=== PATIENT | female | born 1970 | race Caucasian/White ===

== ENCOUNTER 2016-08-10 11:55 | Emergency (ER) | payer BC ==
[2016-08-10 12:07] VITALS: BP 100/69
[2016-08-10] MEDS ORDERED: PROMETHAZINE HCL 25 MG in DEXTROSE 5 % IN WATER 50 ML IV ONE ×2 (12:20)
[2016-08-10] MEDS ORDERED: NORMAL SALINE 1,000 ML IV ONE (12:20)
[2016-08-10] MEDS ORDERED: diphenhydrAMINE HCL 50 MG/ML VIAL IV ONE (12:20)
--- OUTSIDE RECORDS SUMMARY | 2016-08-10 12:27 | XMS REPORT | Continuity of Care Document ---
:1970 Author Organization [facility] ([facility]) Address [place] [address] Phone [phone] Care Team Providers Name Role Phone Remberto Bright Primary Care Provider [phone] Source Comments This disclosure is being made pursuant to the Care Everywhere program, applicable federal and state laws, and may not contain all informaitonavailable regarding this patient.[facility] ([facility]) Active Allergies and Adverse Reactions Allergen Noted Date Severity Reactions Comments Hydrocodone-Acetaminophen 10/14/2009 Pruritus Ketorolac 10/14/2009 Pruritus Lorazepam 10/14/2009 Pruritus Metoclopramide 10/14/2009 Pruritus Oxycodone-Acetaminophen 10/14/2009 Pruritus Sumatriptan Succinate 10/14/2009 Pruritus Tetracycline 10/14/2009 Urticaria (Hives) Tramadol 10/14/2009 Pruritus Current Medications Prescription Sig. Disp. Refills Start Date End Date Status atenolol (TENORMIN) 100 mg Take 200 mg by Active tablet mouth daily. ALPRAZolam (XANAX) 1 mg Take 1 mg by mouth 10/14/2009 Active tablet 3 times daily. ALPRAZolam (XANAX) 0.5 mg Take 0.5 mg by 10/14/2009 Active tablet mouth 3 times daily as needed. Active Problems Not on file Social History Tobacco Use Types Packs/Day Years Used Date Never Assessed Last Filed Vital Signs Vital Sign Reading Time Taken Blood Pressure 140/80 10/14/2009 10:46 AM CDT Pulse 80 10/14/2009 10:46 AM CDT Temperature - - Respiratory Rate 14 10/14/2009 10:46 AM CDT Height 1.626 m (5' 4") 10/14/2009 10:46 AM CDT Weight 60.782 kg (134 lb) 10/14/2009 10:46 AM CDT Body Mass Index 22.99 10/14/2009 10:46 AM CDT Oxygen Saturation - - Plan of Care Health Maintenance Due Date Last Done Comments Hepatitis B Vaccine (1 of 3 - Primary Series) 1970 Tdap Vaccine 12/29/1979 Lipid Disorder Screening 1986 MMR Vaccine 1986 Td Vaccine 1986 Cervical Cancer Screening 1998 Mammogram 2008 Influenza Vaccine: Seasonal (#1) 12/01/2015 Results from Last 3 Months Not on file
--- OUTSIDE RECORDS SUMMARY | 2016-08-10 12:27 | XMS REPORT | Summary of Care ---
:1970 Author Organization [facility] Address [address] [place] [id number] Encounter Date(s): 10/02/15 - 10/02/[address] [id number] Discharge Disposition: 01 Discharged to Home or Self Care Attending Physician: Venkat Kathleen MD Referring Physician: Venkat Kathleen MD Vital Signs No data available for this section Problem List No data available for this section Allergies, Adverse Reactions, Alerts No data available for this section Medications No data available for this section Results No data available for this section Immunizations No data available for this section Procedures No data available for this section Social History No data available for this section Assessment and Plan No data available for this section
--- OUTSIDE RECORDS SUMMARY | 2016-08-10 12:27 | XMS REPORT | Continuity of Care Document ---
:1970 Author Organization [facility] [place] [address] Care Team Providers Name Role Phone Carlos Eduardo Carpenter Primary Care Provider [phone] Source Comments This disclosure is being made pursuant to the [employer] program and maynot contain all information available regarding this patient.[facility] Active Allergies and Adverse Reactions Allergen Noted Date Severity Reactions Comments Adhesive Tape 03/28/2015 Other (See Comments) Blistering Imitrex 03/28/2015 High Anaphylaxis Tetracycline 03/28/2015 Low Rash Toprol Xl 03/28/2015 Other (See Comments) "Skin felt crawly" per BAR Ultram 03/28/2015 Low Itching Vicodin 03/28/2015 Low Itching Current Medications Be aware that medications may not be up to date as of this document. Alwaysverify current medications with the patient. Prescription Sig. Disp. Refills Start Date End Date Status ALPRAZolam (XANAX) 1 Take 1 mg by Active MG tablet mouth 3 (three) times daily as needed for Sleep. oxyCODONE HCl ER Take 15 mg by Active (OXYCONTIN) 15 MG T12A mouth every 12 12 hr tablet (twelve) hours. aspirin (ASPIRIN) 325 Take 1 tablet by 30 tablet 8 03/15/2016 Active MG EC tablet mouth daily. atorvastatin (LIPITOR) Take 1 tablet by 30 tablet 8 03/15/2016 Active 40 MG tablet mouth every evening. clopidogrel (PLAVIX) Take 1 tablet by 30 tablet 8 03/15/2016 Active 75 MG tablet mouth daily. lisinopril Take 1 tablet by 30 tablet 8 03/15/2016 03/15/2017 Active (PRINIVIL,ZESTRIL) 20 mouth daily. MG tablet metoprolol succinate Take 1 tablet by 30 tablet 11 03/23/2016 03/23/2017 Active (TOPROL XL) 50 MG 24 mouth daily. hr tablet Active Problems No known active problems Most Recent Encounters Date Type Specialty Providers Description 07/29/2016 Data Import Immunizations Name Dates Previously Given Next Due Influenza, Inactivated, Trivalent, 3 years and older, 03/14/2015 single dose syringe Social History Tobacco Use Types Packs/Day Years Used Date Current Every Day Smoker 0.5 Smokeless Tobacco: Never Used Tobacco Cessation:Ready to Quit: No; Counseling Given: Yes Comments: Alcohol Use Drinks/Week oz/Week Comments No 0 Standard drinks or equivalent 0.0 Last Filed Vital Signs Vital Sign Reading Time Taken Blood Pressure 126/74 03/15/2016 9:37 AM [employer]THOD[employer]IST [employer]ICE PRESIDENT Pulse 72 03/15/2016 9:37 AM [employer]THOD[employer]IST VICE PRESIDENT Temperature - - Respiratory Rate 18 08/28/2015 8:55 AM CDT Height 1.6 m (5' 3") 08/28/2015 8:55 AM CDT Weight 63.504 kg (140 lb) 03/15/2016 9:37 AM [employer]THOD[employer]IST [employer]ICE PRESIDENT Body Mass Index 24.81 03/15/2016 9:37 AM ORTHOD[employer]IST [employer]ICE PRESIDENT Oxygen Saturation - - Plan of Care Patient Goal Type Goal Blood Pressure Blood Pressure below 140/90 Date Type Specialty Providers Description 09/13/2016 Appointment Cardiology Zoraida Polanco, [employer] [address] [place] [address] [phone] (Fax) Health Maintenance Due Date Last Done Comments Pneumococcal Medium Risk 19-64 yo (1 of 1 - PPSV23) 12/29/1987 Tetanus/Pertussis (1 - Tdap) 12/29/1987 Pap Smear 1989 Influenza Immunization (#1) 2016 03/14/2015 Results from Last 3 Months Not on file
[2016-08-10] MEDS ORDERED: diphenhydrAMINE HCL 50 MG/ML VIAL IM ONE (12:30)
[2016-08-10] MEDS ORDERED: PROMETHAZINE HCL 50 MG/ML AMPUL IM ONE ×2 (12:31→12:34)
[2016-08-10] MEDS ORDERED: NAPROXEN SODIUM 550 MG TABLET PO ONE (12:32)
--- NOTE | 2016-08-10 12:34 | ERNOTE ---
Headache ER HPI - Narrative Date of Service: 08/10/16 - General Time Seen by Provider: 08/10/16 12:10 Source: patient Exam Limitations: no limitations - Immun/Allergies/Home Medications Immunizations: IMMUNIZATION HX Immunizations Up to Date Yes History of Influenza Vaccine Yes Hx Pneumococcal Vaccination No Allergies/Adverse Reactions: Allergies Tetracyclic Antidepressants Allergy (Unknown, Verified 08/10/16 12:06) Swelling (Other) "blisters in mouth" metoclopramide HCl [From Reglan] Allergy (Verified 08/10/16 12:06) Anaphylaxis nalbuphine HCl [From Nubain] Allergy (Verified 08/10/16 12:06) Itching sumatriptan succinate [From Imitrex] Allergy (Verified 08/10/16 12:06) Other chest pain tramadol Allergy (Verified 08/10/16 12:06) Hives hydrocodone bitartrate [From Vicodin] Adverse Reaction (Verified 08/10/16 12:06) Itching hydromorphone HCl [From Dilaudid] Adverse Reaction (Verified 08/10/16 12:06) Itching ketorolac tromethamine [From Toradol] Adverse Reaction (Verified 08/10/16 12:06) Other itching and strange sensations. lorazepam [From Ativan] Adverse Reaction (Verified 08/10/16 12:06) Other forgetful oxycodone HCl [From Percocet] Adverse Reaction (Verified 08/10/16 12:06) Itching sumatriptan [From Imitrex] Adverse Reaction (Verified 08/10/16 12:06) Other chest pain Home Medications: HOME MEDICATIONS Alprazolam 1 mg PO Q8H PRN 09/26/13 [Last Taken Unknown] Metoprolol Succinate [Toprol Xl] 200 mg PO DAILY 08/08/14 [Last Taken Unknown] Lisinopril [Zestril] 10 mg PO DAILY 12/22/14 [Last Taken Unknown] Clopidogrel Bisulfate [Plavix] 75 mg PO DAILY 09/08/15 [Last Taken Unknown] Ranitidine HCl [Zantac] 150 mg PO DAILY 08/10/16 [Last Taken Unknown] - History of Present Illness Narrative: Pt. comes in with c/o migraine headache on the L side of her head with nausea and vomiting. Pt. has had migraines in the past and states that she usually gets demerol and phenergan for the pain and then goes home. Pt. denies and that this is not the worst headache ever and is similar to her other migraines. Review of Systems - Review of Systems Constitutional: Present: no symptoms reported EYE: Present: no symptoms reported. Absent: double vision, vision changes ENT: Present: no symptoms reported Respiratory: Present: no symptoms reported. Absent: shortness of breath, cough , wheezing Cardiology: Present: no symptoms reported. Absent: chest pain, palpitations, edema Gastrointestinal/Abdominal: Present: nausea, vomiting. Absent: diarrhea, abdominal pain Genitourinary: Present: no symptoms reported Musculoskeletal: Present: no symptoms reported. Absent: back pain, joint pain Skin: Present: no symptoms reported Neurological: Present: headache, dizziness/light-headedness. Absent: numbness, tingling All Other Systems: All systems neg except as marked - Patient's Past Medical History Patient History - Medical: Migraines Patient History - Cardiac/Respiratory: Myocardial Infarction Patient History - Cancer: No Hx of Cancer Patient History - Surgical Procedures: Appendectomy, Cholecystectomy, Colonoscopy, EGD, Hysterectomy, Other Patient History - Other: None - Family History Mother Family History - Medical: Family History - Cardiac/Respiratory: Hypertension - Social History Living Situations: home Psych History: Hx of Anxiety Smoking Status: Current every day smoker Have you smoked in the past 12 months: Yes Alcohol Use: rarely Drug Use: none - Immunizations Immunizations Up to Date: Yes Hx Pneumococcal Vaccination: No History of Influenza Vaccine: Yes Physical Exam - Physical Exam General Appearance: Present: wd/wn, alert, no apparent distress Eye Exam: Normal inspection: bilateral, PERRL: bilateral, EOMI: bilateral Ears, Nose, Throat: Present: normal ENT inspection, normal pharynx Neck: Present: normal inspection, nontender. Absent: lymphadenopathy (R), lymphadenopathy (L) Respiratory: Present: no respiratory distress, normal breath sounds, no accessory muscle use, chest nontender, lungs clear Cardiovascular/Chest: Present: regular rate, rhythm, no murmur, normal peripheral pulses Gastrointestinal/Abdominal: Present: normal bowel sounds, nontender Back Exam: Present: normal inspection, normal range of motion, no CVA tenderness , no vertebral tenderness Extremity Exam: Present: normal inspection, non-tender, normal range of motion, no edema Neurological Exam: Present: alert, oriented, normal mood/affect, no motor/ sensory deficits, loader II-XII nml as tested, normal cerebellar test Skin Exam: Present: normal color, warm/dry. Absent: pallor, skin rash ED Progress - Date and Time Seen: Date and Time: 08/10/16 12:28 Explained to pt. that there is evidence that narcotics should not be used to treat migraines due to rebound headaches and dependance. Pt. states understanding but told nurse that she just wants a shot of phenergan and to be discharged. Feel that this is not safe as we need to monitor for effectiveness and adverse events , so pt. agreed to stay for this monitoring. 08/10/16 12:46 After agreeing to treatment...pt. refused naproxen and then refused to stay after given the phenergan/ benedryl mixture yelling that she does not need to stay here. - Vital Signs Patient's Vital Signs:: I have reviewed the patient's vital signs. Vital Signs: Vital Signs 08/10/16 12:01 Temperature 36.5 C Pulse Rate 86 Respiratory 18 Rate Blood Pressure 100/69 O2 Sat by Pulse 99 Oximetry - Progress/Reassessment Chief Complaint: Headache Departure Clinical Impression: Drug-seeking behavior Migraine without aura Qualifiers: Status migrainosus presence: without status migrainosus Intractability: not intractable Qualified Code(s): G43.009 - Migraine without aura, not intractable , without status migrainosus - Departure Disposition: Against medical advice Referrals: Carlos Eduardo Carpenter DO [Primary Care Provider] -
[2016-08-10] MEDS ORDERED: NAPROXEN SODIUM 550 MG TABLET ONE (12:35)
[2016-08-10] MEDS ORDERED: diphenhydrAMINE HCL 50 MG/ML VIAL ONE (12:35)
== END 2016-08-10 12:43 | disposition left against medical advice (07) ==
LOC: ER 11:55
DX: G43.009 Migraine without aura, not intractable, without status migrainosus (principal); Z76.5 Malingerer [conscious simulation]